=== PATIENT | male | born 1960 | race Caucasian/White ===

== ENCOUNTER 2025-09-26 09:05 | Emergency (ER) | payer OTHER, MEDICARE ==
[2025-09-26] MEDS ORDERED: Lidocaine 1% with EPINEPHrine 1:100,000 20 ML MDV INFILT ONE (09:06)
[2025-09-26 09:20] VITALS: BP 165/94; PULSE 88
[2025-09-26] MEDS: Diphtheria,Pertussis(Acell),Tetanus Vaccine 0.5 ML Syringe IM ONE (10:47)
== END 2025-09-26 10:55 | disposition home or self-care (01) ==
LOC: FB.ED 09:05
DX: S61.221A Laceration with foreign body of left index finger without damage to nail, initial encounter (principal); I10 Essential (primary) hypertension; E78.00 Pure hypercholesterolemia, unspecified; E11.9 Type 2 diabetes mellitus without complications; Z87.891 Personal history of nicotine dependence; Z79.82 Long term (current) use of aspirin; Z79.84 Long term (current) use of oral hypoglycemic drugs; Z79.899 Other long term (current) drug therapy; W22.8XXA Striking against or struck by other objects, initial encounter; Z23 Encounter for immunization
CPT/HCPCS: 12042; 73130; 90471; 90715; 99283; J2004; 12002